=== PATIENT | female | born 1955 | race Caucasian/White ===

== ENCOUNTER 2022-11-17 20:13 | Emergency (ER) | payer OTHER ==
[~2022-11-17] VITALS: Ht 157.5 cm; Wt 70.3 kg
[2022-11-17 20:50] VITALS: BP 131/84; PULSE 81; RESP 17; TEMP 97.9; O2SAT 100
[2022-11-17] MEDS ORDERED: IBUPROFEN 600 MG TAB PO ONE (22:50)
[2022-11-17] MEDS ORDERED: ACETAMINOPHEN EXTRA STRENGTH 500 MG TAB PO ONE (22:50)
[2022-11-17 23:00] VITALS: BP 125/84; PULSE 81; RESP 17; TEMP 97.6; O2SAT 100
== END 2022-11-18 02:30 | disposition home or self-care (01) ==
LOC: MED 20:13
DX: S32.19XA Other fracture of sacrum, initial encounter for closed fracture (principal); S09.90XA Unspecified injury of head, initial encounter; W18.30XA Fall on same level, unspecified, initial encounter; Y93.89 Activity, other specified; Y92.89 Other specified places as the place of occurrence of the external cause; Y99.8 Other external cause status
CPT/HCPCS: 70450; 72192; 99284